=== PATIENT | male | born 1995 | race Caucasian/White ===

== ENCOUNTER 2020-06-02 18:39 | Emergency (ER) | payer BC ==
[~2020-06-02] VITALS: Ht 172.7 cm; Wt 70.3 kg
[2020-06-02] MEDS ORDERED: ZYRTEC10 M4 PO (18:50)
[2020-06-02] MEDS ORDERED: LEXAPRO20 MG PO (18:50)
[2020-06-02 19:10] LABS: URINE BILIRUBIN NEGATIVE (Negative); URINE BLOOD NEGATIVE (Negative); URINE CLARITY CLEAR; URINE COLOR YELLOW; URINE GLUCOSE-RANDOM* NEGATIVE (Negative); URINE KETONES NEGATIVE (Negative); URINE LEUKOCYTES-REFLEX NEGATIVE (Negative); URINE NITRITE-REFLEX NEGATIVE (Negative); URINE PROTEIN (DIPSTICK) NEGATIVE (Negative); URINE SPECIFIC GRAVITY 1.015 (1.005-1.035); URINE UROBILINOGEN 0.2 E.U./dl (0.2-1.0)
[2020-06-02 19:39] LABS: ABSOLUTE NEUTROPHILS 12.9 thou/uL (1.4-8.2); BASOPHILS 0.4 % (0.0-2.0); EOSINOPHILS 0.8 % (0.0-3.0); HEMATOCRIT 44.5 % (42.0-52.0); HEMOGLOBIN 15.1 gm/dL (14.0-18.0); LYMPHOCYTES 9.5 % (24.0-44.0); MCHC 33.8 g/dL (28.0-37.0); MCV 94.6 fL (80.0-100.0); MONOCYTES 4.4 % (1.0-8.0); PLATELET COUNT 314 thou/uL (150-400); POLYS 84.9 % (36.0-66.0); RBC 4.71 mil/uL (4.50-6.00); RDW 12.7 % (10.5-14.5); WBC 15.1 thou/uL (4.0-11.0)
[2020-06-02 19:49] LABS: CALCIUM 8.8 mg/dL (8.5-10.1); CREATININE 0.9 mg/dL (0.7-1.3); POTASSIUM 3.3 mmol/L (3.5-5.1)
[2020-06-02 19:55] LABS: ALBUMIN 4.1 g/dL (3.4-5.0); TOTAL BILIRUBIN 0.5 mg/dL (0.2-1.0); TOTAL PROTEIN 7.7 g/dL (6.4-8.2)
[2020-06-02] MEDS ORDERED: TORADOL 10 MG T10 MG PO (21:20)
[2020-06-02] MEDS ORDERED: CIPRO500 M1 PO (21:20)
[2020-06-02] MEDS ORDERED: FLAGYL500 M1 PO (21:20)
[2020-06-02] MEDS ORDERED: ONDANSETRON HCL4 M2 PO (21:20)
[2020-06-02 22:05] VITALS: BP 112/68
== END 2020-06-02 22:57 | disposition home or self-care (01) ==
LOC: ER 18:39
PROVIDERS: Physician Assistant
DX: K52.9 Noninfective gastroenteritis and colitis, unspecified (principal); E87.6 Hypokalemia; Z79.899 Other long term (current) drug therapy